=== PATIENT | female | born 1965 | race Caucasian/White ===

== ENCOUNTER → 2016-11-26 | Outpatient (CLI) | payer OTHER ==
[~2016-11-26] MED LIST: FEOSOL PO; FERROUS SULFAT325 MG PO; HYDROCHLOROTHIA25 MG PO; IBUPROFEN800 MG PO; LISINOPRIL20 MG PO; NORVASC PO; PROTONIX PO; ZANTAC150 M1 PO
--- NOTE | ~2016-11-26 | CR7 ---
[facility] A Service of [facility] RADIOLOGY TEXT RESULTS PATIENT: LUIS VALDIVIA LOCATION: [facility] : 69 UNIT #: [id number] AGE: [address]: Betty Simeon APRN SEX: F ORDER DR: [id number] [facility] [address] [place], [place] [address] [id number] O MR#: [id number] Acc #: [id number] NAME: LUIS VALDIVIA : 1965 SEX: F STUDY DATE/TIME: 11/26/2016 12:34 UNIT: [facility] ROOM: STUDY DESCRIPTION: CR Abdomen Single AP View Attending Physician: Betty Simeon Aprn Referring Physician: Betty Simeon Aprn Ordering Physician: Betty Simeon Aprn Primary Care Physician: Roro Vanessa M.D. MEDICAL IMAGING REPORT This report is preliminary unless electronic signature is present EXAM Abdominal radiograph INDICATIONS Abdominal cramping and nausea. FINDINGS AP radiographs of the abdomen without comparison. The bowel gas pattern is nonobstructive. There is no acute osseous abnormalities. No foreign body. IMPRESSION No acute findings. Nonobstructive bowel gas pattern. Dictated by... Tin Shook M.D. THIS IS AN ELECTRONICALLY VERIFIED REPORT Tin Shook M.D. at 11/27/2016 5:16 PM [facility]/shaun TD: 11/27/2016 16:17 JOB #: [id number] MEDICAL IMAGING REPORT Page 1 of 1 COPY
== END | disposition home or self-care (01) ==
LOC: CRAD 12:20
DX: R10.9 Unspecified abdominal pain (principal); R11.0 Nausea
CPT/HCPCS: 74000